=== PATIENT | female | born 1975 | race Caucasian/White ===

== ENCOUNTER 2020-01-05 16:17 | Emergency (ER) | payer MEDICAID ==
[~2020-01-05] VITALS: Ht 162.6 cm; Wt 88.0 kg
[2020-01-05 16:28] VITALS: Ht 162.6 cm; Wt 88.0 kg
[2020-01-05 18:41] VITALS: BP 144/93
== END 2020-01-05 18:41 | disposition home or self-care (01) ==
LOC: ED 16:17
DX: S39.012A Strain of muscle, fascia and tendon of lower back, initial encounter (principal); N39.0 Urinary tract infection, site not specified; R03.0 Elevated blood-pressure reading, without diagnosis of hypertension; Z87.442 Personal history of urinary calculi; Z88.0 Allergy status to penicillin; X58.XXXA Exposure to other specified factors, initial encounter; Y93.89 Activity, other specified; Y92.89 Other specified places as the place of occurrence of the external cause; Y99.8 Other external cause status
CPT/HCPCS: J2270; Q0092